=== PATIENT | female | born 1975 | race African-American/Black ===

== ENCOUNTER 2017-09-28 00:26 | Emergency (ER) | payer BC ==
[2017-09-28] MEDS ORDERED: Ibuprofen 200 MG TAB ONE (00:56)
--- NOTE | 2017-09-28 08:05 | RAD ---
THREE VIEWS OF THE RIGHT SHOULDER: DATE: 09/28/17. COMPARISON: None. HISTORY: Right shoulder pain. FINDINGS: There is no widening of the acromioclavicular or coracoclavicular interspace. No displaced fracture or evidence of dislocation is seen. IMPRESSION: No acute findings. POS: [facility]
== END 2017-09-28 02:16 | disposition home or self-care (01) ==
LOC: ERS 00:26
DX: M25.511 Pain in right shoulder (principal); I10 Essential (primary) hypertension; J45.909 Unspecified asthma, uncomplicated; X50.3XXA Overexertion from repetitive movements, initial encounter

== ENCOUNTER 2019-08-03 16:19 | Emergency (ER) | payer BC, SELFPAY ==
[2019-08-03] MEDS ORDERED: Dexamethasone 4 mg/ml Vial ONE (17:02)
[2019-08-03] MEDS ORDERED: Acetaminophen 500 MG TAB ONE (17:02)
== END 2019-08-03 17:35 | disposition home or self-care (01) ==
LOC: ERS 16:19
DX: J02.9 Acute pharyngitis, unspecified (principal); I10 Essential (primary) hypertension; J45.909 Unspecified asthma, uncomplicated
CPT/HCPCS: 87081; 87430; 99283; J1100

== ENCOUNTER 2021-01-25 00:10 | Emergency (ER) | payer OTHER, SELFPAY ==
[2021-01-25] MEDS ORDERED: HYDROcodone/Acetaminophen 10/325 mg Tablet ONE (01:14)
== END 2021-01-25 01:46 | disposition home or self-care (01) ==
LOC: ERS 00:10
DX: S83.91XA Sprain of unspecified site of right knee, initial encounter (principal); I10 Essential (primary) hypertension; J45.909 Unspecified asthma, uncomplicated; W01.0XXA Fall on same level from slipping, tripping and stumbling without subsequent striking against object, initial encounter

== ENCOUNTER 2021-03-06 08:52 | Emergency (ER) | payer SELFPAY ==
[2021-03-06] MEDS ORDERED: Naproxen 500 MG TAB ONE (09:16)
== END 2021-03-06 09:48 | disposition home or self-care (01) ==
LOC: ERS 08:52
DX: M25.561 Pain in right knee (principal); I10 Essential (primary) hypertension; J45.909 Unspecified asthma, uncomplicated

== ENCOUNTER 2022-03-29 19:24 | Inpatient (IN) | payer SELFPAY ==
[2022-03-29 20:57] LABS: #Eosinphils 0.1 thou/uL (0.0-0.7); #Lymphocytes 3.6 thou/uL (1.20-3.40); #Monocytes 0.5 thou/uL (0.11-0.59); #Neutrophils 8.9 thou/uL (1.40-6.50); %Basophils 0.2 % (0.0-1.0); %Eosinophils 0.5 % (0.0-10.0); %Lymphocytes 27.5 % (21.0-51.0); %Monocytes 3.8 % (0.0-10.0); %Neutrophils 68.1 % (42.0-75.0); Hemoglobin 13.9 g/dL (12.0-16.0); Mean Corpuscular Hemoglobin 30.8 pg (27.0-31.0); Mean Corpuscular Volume 93.4 fL (78.0-98.0); Mean Platelet Volume 6.8 fL (7.4-10.4); Platelet Count 366 thou/uL (130-400); Red Blood Cell (RBC) Count 4.52 mill/uL (4.20-5.40); White Blood Cell (WBC) Count 13.1 thou/uL (4.8-10.8)
[2022-03-29 21:18] LABS: ALT (SGPT) 23 U/L (8-55); AST (SGOT) 19 U/L (5-34); Albumin 4.3 g/dL (3.5-5.0); Alkaline Phosphatase 76 U/L (40-110); Anion Gap 16 mmol/L (10-20); BUN (Urea Nitrogen) 8 mg/dL (7.0-18.7); Bilirubin, Total 0.7 mg/dL (0.2-1.2); Calc. Creatinine Clearance 0 mL/min (70-130); Calcium 10.1 mg/dL (7.8-10.44); Carbon Dioxide 26 mmol/L (22-29); Chloride 103 mmol/L (98-107); Estimated GFR 82; Globulin 4.4 g/dL (2.4-3.5); Glucose 120 mg/dL (70-105); Lipase 28 U/L (8-78); Potassium 4.5 mmol/L (3.5-5.1); Protein, Total 8.7 g/dL (6.0-8.3); Sodium 140 mmol/L (136-145)
[2022-03-29] MEDS ORDERED: Ketorolac Tromethamine 30 MG/ML VIAL ONE (22:04)
[2022-03-29] MEDS ORDERED: Lidocaine Viscous Sol 2% 15 ml UD Cup ONE (22:04)
[2022-03-29] MEDS ORDERED: Ondansetron PF 4 MG/2 ML Vial ONE (22:04)
[2022-03-29] MEDS ORDERED: Mag-Al 1200 mg/1200 mg/30 ML UDCUP ONE (22:04)
[2022-03-29] MEDS ORDERED: Ondansetron ODT 4 MG TAB ONE (22:21)
[2022-03-29 23:37] LABS: Bilirubin Negative (Negative); Blood, Urine Negative (Negative); Clarity Clear (Clear); Glucose, Urine (Dipstick) Normal (Negative); Ketone, Urine Negative (Negative); Leukocyte Negative Leu/uL (Negative); Nitrite Negative (Negative); Protein, Urine (Dipstick) Negative (Neg-Trace); Specific Gravity, Urine 1.016 (1.002-1.036); Urobilinogen Normal mg/dL (Less than 2)
[2022-03-29] MEDS ORDERED: Sodium Chloride 0.9% 1,000 ML IV SCH (23:45)
[2022-03-29] MEDS ORDERED: Ondansetron ODT 4 MG TAB SL PRN (23:45)
[2022-03-29] MEDS ORDERED: Ondansetron PF 4 MG/2 ML Vial IVP PRN (23:45)
[2022-03-30] MEDS ORDERED: Morphine 2 MG/ML VIAL SLOW IVP PRN (00:44)
[2022-03-30] MEDS ORDERED: Famotidine 20 MG TAB PO PRN (00:44)
[2022-03-30] MEDS ORDERED: Lactated Ringer's 1,000 ML IV SCH (00:45)
[2022-03-30] MEDS ORDERED: Ondansetron PF 4 MG/2 ML Vial IVP PRN (01:10)
[2022-03-30] MEDS ORDERED: Ondansetron ODT 8 MG TAB SL PRN (01:11)
[2022-03-30] MEDS ORDERED: Ondansetron ODT 4 MG TAB PO PRN (01:23)
[2022-03-30 01:25] VITALS: BMI 39.7
[2022-03-30] MEDS: Lactated Ringer's 1,000 ML IV SCH ×4 (01:34→22:18)
[2022-03-30 07:30] LABS: Hemoglobin A1c 5.3 % (4.0-6.0)
[2022-03-30 07:43] LABS: #Eosinphils 0.2 thou/uL (0.0-0.7); #Lymphocytes 3.8 thou/uL (1.20-3.40); #Monocytes 0.5 thou/uL (0.11-0.59); #Neutrophils 4.9 thou/uL (1.40-6.50); %Basophils 0.4 % (0.0-1.0); %Lymphocytes 40.5 % (21.0-51.0); %Monocytes 5.2 % (0.0-10.0); %Neutrophils 51.9 % (42.0-75.0); Hemoglobin 12.5 g/dL (12.0-16.0); Mean Corpuscular HGB CONC 33.1 g/dL (32.0-36.0); Mean Corpuscular Hemoglobin 31.1 pg (27.0-31.0); Mean Platelet Volume 7.6 fL (7.4-10.4); Platelet Count 298 thou/uL (130-400); RBC Distribution Width 12.9 % (11.5-14.5); Red Blood Cell (RBC) Count 4.04 mill/uL (4.20-5.40); White Blood Cell (WBC) Count 9.4 thou/uL (4.8-10.8)
[2022-03-30 07:46] LABS: Cardiac Risk 3.7 (Less than 4.5)
[2022-03-30 07:53] LABS: ALT (SGPT) 15 U/L (8-55); AST (SGOT) 17 U/L (5-34); Albumin 3.6 g/dL (3.5-5.0); Alkaline Phosphatase 64 U/L (40-110); Anion Gap 12 mmol/L (10-20); BUN (Urea Nitrogen) 8 mg/dL (7.0-18.7); Bilirubin, Total 0.6 mg/dL (0.2-1.2); Calc. Creatinine Clearance 182 mL/min (70-130); Calcium 9.2 mg/dL (7.8-10.44); Carbon Dioxide 25 mmol/L (22-29); Chloride 106 mmol/L (98-107); Estimated GFR 101; Glucose 94 mg/dL (70-105); Potassium 4.1 mmol/L (3.5-5.1); Protein, Total 7.6 g/dL (6.0-8.3); Sodium 139 mmol/L (136-145)
[2022-03-30] MEDS ORDERED: ISOVUE-370 76%-LOCM 1 ML ONE (08:00)
[2022-03-30] MEDS ORDERED: Famotidine/PF 20 mg/2ml Vial SLOW IVP PRN (08:18)
[2022-03-30] MEDS ORDERED: Lisinopril 10 MG TAB PO SCH (09:00)
[2022-03-30] MEDS ORDERED: Ibuprofen 800 MG TAB PO PRN (17:53)
[2022-03-30] MEDS ORDERED: Acetaminophen 500 MG TAB PO SCH (18:00)
[2022-03-30] MEDS: Famotidine 20 MG TAB PO SCH (21:04)
[2022-03-30] MEDS: Acetaminophen 500 MG TAB PO SCH (21:04)
[2022-03-31] MEDS: Acetaminophen 500 MG TAB PO SCH ×3 (05:10→21:08)
[2022-03-31] MEDS: Lactated Ringer's 1,000 ML IV SCH ×3 (05:11→17:27)
[2022-03-31] MEDS: Famotidine 20 MG TAB PO SCH ×2 (08:02→20:50)
[2022-04-01] MEDS: Lactated Ringer's 1,000 ML IV SCH ×2 (01:13→05:33)
[2022-04-01] MEDS: Acetaminophen 500 MG TAB PO SCH (06:08)
[2022-04-01] MEDS: Famotidine 20 MG TAB PO SCH (07:52)
[2022-04-01 12:27] VITALS: BP 155/84; TEMP 97.8
== END 2022-04-01 13:00 | disposition home or self-care (01) | DRG 391 ==
LOC: ERS 19:24 → T4-A 23:33 → OBSVTOIN 03-30 17:19
PROVIDERS: ADMIT Student in an Organized Health Care Education/Training Program; ATTEND Family Medicine
DX: A09 Infectious gastroenteritis and colitis, unspecified (principal); K56.2 Volvulus; Z20.822 Contact with and (suspected) exposure to COVID-19; F32.A Depression, unspecified; I10 Essential (primary) hypertension; J45.909 Unspecified asthma, uncomplicated; K80.20 Calculus of gallbladder without cholecystitis without obstruction; K57.30 Diverticulosis of large intestine without perforation or abscess without bleeding; Z28.21 Immunization not carried out because of patient refusal; Z91.013 Allergy to seafood; Z90.710 Acquired absence of both cervix and uterus; Z98.890 Other specified postprocedural states; Z80.0 Family history of malignant neoplasm of digestive organs; Z83.2 Family history of diseases of the blood and blood-forming organs and certain disorders involving the immune mechanism; Z83.3 Family history of diabetes mellitus
CPT/HCPCS: 36415; 71045; 74176; 74177; 80053; 80061; 81003; 83036; 83690; 84484; 85025; 86140; 93005; 96361; 96374; G0378; J1885; J2405; J7120; Q0162; Q9966; U0003; U0005

== ENCOUNTER 2022-08-08 20:44 | Emergency (ER) | payer SELFPAY | END 2022-08-08 22:38 | disposition home or self-care (01) | LOC: ERS 20:44 | DX: T19.2XXA Foreign body in vulva and vagina, initial encounter (principal); I10 Essential (primary) hypertension | CPT/HCPCS: 99283 ==

== ENCOUNTER 2023-06-01 17:28 | Emergency (ER) | payer SELFPAY ==
[2023-06-01] MEDS ORDERED: Ketorolac Tromethamine 30 MG/ML VIAL ONE (19:12)
== END 2023-06-01 19:50 | disposition home or self-care (01) ==
LOC: ERS 17:28
DX: M25.522 Pain in left elbow (principal); I10 Essential (primary) hypertension
CPT/HCPCS: 96372; J1885

== ENCOUNTER 2023-09-05 08:03 | Inpatient (IN) | payer BC, SELFPAY ==
[2023-09-05 08:59] LABS: #Eosinphils 0.1 thou/uL (0.0-0.7); #Monocytes 0.4 thou/uL (0.11-0.59); #Neutrophils 2.8 thou/uL (1.40-6.50); %Basophils 0.4 % (0.0-1.0); %Eosinophils 1.9 % (0.0-10.0); %Lymphocytes 51.9 % (21.0-51.0); %Monocytes 5.9 % (0.0-10.0); %Neutrophils 39.6 % (42.0-75.0); Hematocrit 38.8 % (36.0-47.0); Hemoglobin 12.9 g/dL (12.0-16.0); Mean Corpuscular HGB CONC 33.2 g/dL (32.0-36.0); Mean Corpuscular Hemoglobin 29.9 pg (27.0-31.0); Mean Platelet Volume 9.2 fL (7.4-10.4); Platelet Count 374 10x3/uL (130-400); RBC Distribution Width 13.4 % (11.5-14.5); Red Blood Cell (RBC) Count 4.31 mill/uL (4.20-5.40)
[2023-09-05 09:33] LABS: ALT (SGPT) 48 U/L (8-55); AST (SGOT) 46 U/L (5-34); Albumin 4.1 g/dL (3.5-5.0); Alkaline Phosphatase 77 U/L (40-110); Anion Gap 12 mmol/L (10-20); BUN (Urea Nitrogen) 9 mg/dL (7.0-18.7); Bilirubin, Total 0.5 mg/dL (0.2-1.2); Calc. Creatinine Clearance 0 mL/min (70-130); Calcium 9.6 mg/dL (7.8-10.44); Carbon Dioxide 26 mmol/L (22-29); Chloride 103 mmol/L (98-107); Estimated GFR 90; Globulin 4.8 g/dL (2.4-3.5); Glucose 102 mg/dL (70-105); Lipase 27 U/L (8-78); Potassium 4.3 mmol/L (3.5-5.1); Protein, Total 8.9 g/dL (6.0-8.3); Sodium 137 mmol/L (136-145)
[2023-09-05 10:21] LABS: Bacteria/HPF None Seen HPF (None Seen); Bilirubin Negative (Negative); Blood, Urine Negative (Negative); CAUTI Indications for Culture Pelvic or flank pain; Clarity Clear (Clear); Glucose, Urine (Dipstick) Normal (Negative); Ketone, Urine Negative (Negative); Leukocyte Negative Leu/uL (Negative); Nitrite Negative (Negative); Protein, Urine (Dipstick) 10 mg/dL (Neg-Trace); RBC/HPF 0-3 HPF (0-3); Specific Gravity, Urine 1.026 (1.002-1.036); Urobilinogen Normal mg/dL (Less than 2); WBC/HPF 0-3 HPF (0-3); pH, Urine 5.5 (5.0-9.0)
[2023-09-05 10:22] LABS: Pregnancy Test - Urine (BHCG) Negative (Negative); Pregu Control Background? CLEAR/WHITE (CLR/WHITE); Pregu Control Bar Appear? YES (CONTROL BAR); Specific Gravity 1.026 (1.002-1.036)
[2023-09-05 10:23] LABS: Urine Culture Reflex No No
[2023-09-05] MEDS ORDERED: Ketorolac Tromethamine 30 MG/ML VIAL ONE (10:47)
[2023-09-05] MEDS ORDERED: Ondansetron PF 4 MG/2 ML Vial ONE (10:47)
[2023-09-05] MEDS ORDERED: Iopamidol-370 76% 500 ML MDV (1 ML CHARGE) ONE (11:19)
[2023-09-05] MEDS ORDERED: Piperacillin/Tazobactam 4.5 GM VIAL ONE (12:20)
[2023-09-05] MEDS ORDERED: Sodium Chloride 0.9% 100 ML ONE (12:21)
[2023-09-05] MEDS ORDERED: Ondansetron PF 4 MG/2 ML Vial IVP PRN (15:45)
[2023-09-05] MEDS ORDERED: Ondansetron ODT 4 MG TAB SL PRN (15:45)
[2023-09-05 15:54] VITALS: BMI 40.8
[2023-09-05] MEDS: Piperacillin/Tazobactam 3.375 GM in Sodium Chloride 0.9% 100 ML IVPB SCH (18:11)
[2023-09-05] MEDS ORDERED: traMADol HCl 50 MG TAB PO PRN (20:01)
[2023-09-05] MEDS ORDERED: TETANUS, DIPHTHERIA TOX,ADULT (TDVAX) 0.5 ML VIAL IM ONE (20:01)
[2023-09-05] MEDS: Sodium Chloride 0.9% 1,000 ML IV SCH (20:59)
[2023-09-05] MEDS: Acetaminophen 325 MG TAB PO SCH (22:17)
[2023-09-06] MEDS: Piperacillin/Tazobactam 3.375 GM in Sodium Chloride 0.9% 100 ML IVPB SCH ×2 (00:19→09:10)
[2023-09-06] MEDS: Acetaminophen 325 MG TAB PO SCH ×3 (05:29→18:42)
[2023-09-06] MEDS: Sodium Chloride 0.9% 1,000 ML IV SCH ×3 (05:33→21:08)
[2023-09-06 07:05] LABS: #Eosinphils 0.2 thou/uL (0.0-0.7); #Monocytes 0.4 thou/uL (0.11-0.59); #Neutrophils 2.1 thou/uL (1.40-6.50); %Basophils 0.5 % (0.0-1.0); %Eosinophils 3.1 % (0.0-10.0); %Lymphocytes 56.4 % (21.0-51.0); %Monocytes 6.6 % (0.0-10.0); %Neutrophils 33.1 % (42.0-75.0); Hemoglobin 11.9 g/dL (12.0-16.0); Mean Corpuscular HGB CONC 33.1 g/dL (32.0-36.0); Mean Corpuscular Hemoglobin 29.6 pg (27.0-31.0); Mean Corpuscular Volume 89.6 fl (78.0-98.0); Mean Platelet Volume 9.2 fL (7.4-10.4); Platelet Count 328 10x3/uL (130-400); RBC Distribution Width 13.9 % (11.5-14.5); Red Blood Cell (RBC) Count 4.02 mill/uL (4.20-5.40); White Blood Cell (WBC) Count 6.4 10x3/uL (4.8-10.8)
[2023-09-06 07:26] LABS: Anion Gap 10 mmol/L (10-20); BUN (Urea Nitrogen) 10 mg/dL (7.0-18.7); Calc. Creatinine Clearance 157 mL/min (70-130); Calcium 8.9 mg/dL (7.8-10.44); Carbon Dioxide 25 mmol/L (22-29); Chloride 106 mmol/L (98-107); Estimated GFR 83; Glucose 117 mg/dL (70-105); Potassium 3.9 mmol/L (3.5-5.1); Sodium 137 mmol/L (136-145)
[2023-09-06] MEDS ORDERED: FLU VACC QS2023-24(6MOS UP)/PF 60 MCG/0.5 ML SYRINGE IM ONE (09:00)
[2023-09-07] MEDS: Acetaminophen 325 MG TAB PO SCH ×3 (00:06→11:13)
[2023-09-07] MEDS: Sodium Chloride 0.9% 1,000 ML IV SCH (06:34)
[2023-09-07 08:06] VITALS: TEMP 98.3
[2023-09-07 13:29] VITALS: BP 147/84
== END 2023-09-07 15:10 | disposition home or self-care (01) | DRG 372 ==
LOC: ERS 08:03 → ERHOLD 12:29 → T4-B 15:22
PROVIDERS: ADMIT Surgery; ATTEND Surgery
DX: K63.0 Abscess of intestine (principal); K57.92 Diverticulitis of intestine, part unspecified, without perforation or abscess without bleeding; K63.89 Other specified diseases of intestine; K59.00 Constipation, unspecified; Z90.710 Acquired absence of both cervix and uterus
CPT/HCPCS: 36415; 74177; 80048; 80053; 81001; 81025; 83690; 85025; 90714; 96365; 96375; J1650; J1885; J2405; J2543; J3490; J7050; Q9967